=== PATIENT | female | born 1950 | race Two or more races ===

== ENCOUNTER 2019-01-18 11:28 | Emergency (ER) | payer MEDICARE ==
[~2019-01-18] VITALS: Ht 154.9 cm; Wt 160.0 kg
[2019-01-18] MEDS ORDERED: IBUPROFEN 600MG TABLET PO STA (15:24)
[2019-01-18 16:29] VITALS: BP 135/74
== END 2019-01-18 16:30 | disposition home or self-care (01) ==
LOC: ER 11:28
DX: M71.22 Synovial cyst of popliteal space [Baker], left knee (principal); M17.12 Unilateral primary osteoarthritis, left knee; Z91.81 History of falling
CPT/HCPCS: 73562; 93971; 99284